=== PATIENT | male | born 1990 | race Caucasian/White ===

== ENCOUNTER 2019-01-19 14:43 | Emergency (ER) | payer BC ==
[2019-01-19 14:59] VITALS: BP 104/68; PULSE 70; RESP 16; TEMP 98.6
[2019-01-19] MEDS ORDERED: LIDOCAINE 1% INJ 10MG/ML (20 ML MDV) SQ ONE (15:37)
--- NOTE | 2019-01-19 15:38 | ED ---
Wound/Laceration HPI - General Chief Complaint: Wound/Laceration Stated Complaint: Two left fingers laceration Time Seen by Provider: 01/19/19 15:15 Source: patient Mode of arrival: ambulatory Limitations: no limitations - History of Present Illness Initial Comments: Patient is a 28-year-old male presenting to emergency Department after cutting 2 fingers on his left hand on a plastic piece on a washing machine. Patient states he was trying to change out the hose and cut his 2 fingers on a sharp piece of plastic. Patient has a laceration on his left middle and left ring fingers, palmar aspect. Patient states he had a tetanus shot about 4 years ago. No other complaints at this time. Bleeding is controlled at this time. - Related Data Home Medications Medication Instructions Recorded Confirmed No Known Home Medications 06/17/14 06/17/14 Allergies Allergy/AdvReac Type Severity Reaction Status Date / Time No Known Allergies Allergy Verified 06/17/14 00:37 Review of Systems ROS Statement: Those systems with pertinent positive or pertinent negative responses have been documented in the HPI. ROS Other: All systems not noted in ROS Statement are negative. Past Medical History Past Medical History: No Reported History History of Any Multi-Drug Resistant Organisms: None Reported Past Surgical History: No Surgical Hx Reported Past Psychological History: No Psychological Hx Reported Smoking Status: Never smoker Past Alcohol Use History: Occasional Past Drug Use History: None Reported General Exam - General Exam Comments Initial Comments: GENERAL: Well-appearing, well-nourished and in no acute distress. HEAD: Atraumatic, normocephalic. EYES: Pupils equal round and reactive to light, extraocular movements intact, sclera anicteric, conjunctiva are normal. ENT: TMs normal, nares patent, oropharynx clear without exudates. Moist mucous membranes. NECK: Normal range of motion, supple without lymphadenopathy or JVD. LUNGS: Breath sounds clear to auscultation bilaterally and equal. No wheezes rales or rhonchi. HEART: Regular rate and rhythm without murmurs, rubs or gallops. ABDOMEN: Soft, nontender, normoactive bowel sounds. No guarding, no rebound. No masses appreciated. : Deferred EXTREMITIES: Normal range of motion, no pitting or edema. No clubbing or cyanosis. NEUROLOGICAL: Cranial nerves II through XII grossly intact. Normal speech, normal gait. PSYCH: Normal mood, normal affect. Limitations: no limitations Expanded Type of lesion: Present: laceration (0.5 cm laceration of the left middle finger in between DIP and IP joint palmar aspect. Smaller laceration on the left ring finger palmar aspect.) Course Vital Signs 01/19/19 14:58 Temperature 98.6 F Pulse Rate 70 Respiratory 16 Rate Blood Pressure 104/68 O2 Sat by Pulse 98 Oximetry Procedures - Laceration Laceration #1 Consent Obtained: verbal consent Indication: laceration Site: other (Left middle finger, palmar aspect, between DIP and IP joint) Description: linear, flap Depth: simple, single layer Anesthetic Used: lidocaine 1% Anesthesia Technique: local infiltration Amount (mls): 2 Pre-repair: irrigated extensively Type of Sutures: nylon Size of Sutures: 4-0 Number of Sutures: 3 Technique: simple, interrupted Patient Tolerated Procedure: well Medical Decision Making - Medical Decision Making Patient is a 28-year-old male presents to the ER with lacerations to the palmar aspect of his left middle and ring fingers. Patient states he was trying to change a hose in his washing machine and cut his fingers on a hard plastic part. Patient admits to having tetanus vaccine 4 years ago. The wound on his middle finger was closed with 3, 4-0 nylon sutures and the wound on the ring finger was closed with Steri-Strips. Patient tolerated procedure well. Return parameters were discussed. Patient will have sutures removed in 10-12 days. Patient is in agreement with this plan. Case discussed with Dr. Villafuerte. Disposition Clinical Impression: Laceration, Laceration of left ring finger w/o foreign body w/o damage to nail Disposition: HOME SELF-CARE Condition: Stable Instructions (If sedation given, give patient instructions): Care For Your Stitches (ED) Additional Instructions: Please return to the Emergency Department if symptoms worsen or any other concerns. Sutures need to be removed in 10-12 days. Watch for signs of infection such as redness, swelling, drainage from the area. Is patient prescribed a controlled substance at d/c from ED?: No Referrals: Sai Gray MD [Primary Care Provider] - 1-2 days
== END 2019-01-19 17:21 | disposition home or self-care (01) ==
LOC: EC 14:43
DX: S61.215A Laceration without foreign body of left ring finger without damage to nail, initial encounter (principal); S61.213A Laceration without foreign body of left middle finger without damage to nail, initial encounter; W26.8XXA Contact with other sharp object(s), not elsewhere classified, initial encounter; Y93.89 Activity, other specified
CPT/HCPCS: 99282; 12001; J2001